=== PATIENT | female | born 1990 | race Caucasian/White ===

== ENCOUNTER 2019-09-11 08:05 | Outpatient (CLI) | payer MEDICAID, SELFPAY ==
--- NOTE | 2019-09-11 | DI.US_ITS ---
EXAM: US OB 2-3 TRIMESTER CLINICAL HISTORY: HIGH RISK 2ND TRIMESTER, NO HEART TONES IN CLINIC, O09.92. TECHNIQUE: Transabdominal pelvic ultrasound was performed using standard protocol. The patient refu sed transvaginal imaging. COMPARISON: No exams were available for comparison FINDINGS: UTERUS: Position: Anteverted. Size: 8.6 x 4.8 x 6.1 cm Endometrium: 3 millimeters. No evidence of intrauterine . Myometrium: Question of a 1 centimeter anterior myometrial fibroid.. Cervix: Unremarkable. OVARIES: Right: 3.1 x 2.2 x 2.1 cm Cyst or mass: None. Left: 3.1 x 2.2 x 2.0 cm Cyst or mass: None. DOPPLER: Color: Symmetric and uniform flow to both ovaries. No hyperemia. Duplex: Normal ovarian arterial waveforms visualized. CUL-DE-SAC: Free fluid: None. Other: No evidence of intrauterine or ectopic . IMPRESSION: 1. No evidence of intrauterine or ectopic . 2. Unremarkable bilateral ovaries. DATA REPOSITORY:
== END 2019-09-11 08:25 ==
PROVIDERS: PCP Family Medicine; Visit Provider Family Medicine
DX: O09.92 Supervision of high risk pregnancy, unspecified, second trimester (principal); D25.9 Leiomyoma of uterus, unspecified; O26.892 Other specified pregnancy related conditions, second trimester
CPT/HCPCS: 76805